=== PATIENT | female | born 1995 | race Caucasian/White ===

== ENCOUNTER 2021-12-08 13:57 | Day surgery (SDC) | payer OTHER ==
[~2021-12-08] VITALS: Ht 167.6 cm; Wt 102.3 kg
[2021-12-08 14:45] LABS: COLLECTION METHOD CLEAN CATCH
[2021-12-08 14:58] LABS: BASO % 0.2 % (0.0-2.0); EOS # 0.1 K/mm3 (0.0-0.7); EOS % 0.6 % (0.0-4.0); GRAN # 12.9 K/mm3 (1.4-6.5); GRAN % 80.6 % (42.2-75.2); HEMOGLOBIN 12.6 g/dl (12.5-16.0); LYMPH # 2.1 K/mm3 (1.2-3.4); MEAN CELL VOLUME 84 fl (80.0-100.0); MEAN CORPUSCULAR HEMOGLOBIN 29 pg (27-31); MEAN CORPUSCULAR HGB CONC 35 g/dl (33.0-37.0); MEAN PLATELET VOLUME 9.8 fl (7.4-10.4); MONO # 0.9 K/mm3 (0.1-0.6); MONO % 5.4 % (1.7-9.3); PLATELET COUNT 306 K/mm3 (130-400); RED BLOOD COUNT 4.34 M/mm3 (4.10-5.30); REDCELL DISTRIBUTION WIDTH-CV 12.2 % (11.5-14.5)
[2021-12-08 15:01] LABS: MUCOUS Present (NOT PRESENT); URINE BACTERIA None Seen /hpf (NONE SEEN); URINE RBC 0-2 /hpf (0-2); URINE WBC 0-2 /hpf (0-2)
[2021-12-08 15:02] LABS: PH 5.5 (5.0-8.5); URINE APPEARANCE Clear (CLEAR/HAZY); URINE COLOR Yellow (YELLOW); URINE GLUCOSE Negative (NEGATIVE); URINE KETONE Negative (NEGATIVE); URINE PROTEIN(semi-quant) Negative (NEGATIVE)
[2021-12-08 15:03] LABS: URINE BLOOD 1+ (NEGATIVE); URINE NITRATE Negative (NEGATIVE); URINE UROBILINOGEN 0.2 E.U/dL (0.2-1.0)
[2021-12-08 15:05] LABS: HEMATOCRIT 36.5 % (37.0-47.0)
[2021-12-08 15:13] LABS: ALBUMIN 3.7 gm/dL (3.5-5.0); BILIRUBIN,TOTAL 1.5 mg/dL (0.2-1.2); CALCIUM 9.4 mg/dL (8.4-10.2); CREATININE, serum 0.71 mg/dL (0.57-1.11); POTASSIUM 3.6 mmol/L (3.5-4.5); TOTAL PROTEIN 7.5 gm/dL (6.2-8.1)
[2021-12-08] MEDS ORDERED: MOTRIN 600600 MG/TAB PO (17:00)
[2021-12-08] MEDS ORDERED: NORCO 325 MG-51 TAB PO (17:01)
[2021-12-08 19:11] VITALS: BP 140/94; PULSE 77; TEMP 98
[2021-12-08 19:26] VITALS: BP 127/67; PULSE 89
[2021-12-08 19:37] VITALS: BP 127/76; PULSE 89; TEMP 98.7
[2021-12-08 19:41] VITALS: BP 129/78; PULSE 83; TEMP 98.6
[2021-12-08 19:56] VITALS: BP 134/80; PULSE 87
[2021-12-08 20:26] VITALS: BP 111/60; PULSE 88; TEMP 98
--- NOTE | 2021-12-08 22:46 | NUR ---
PATIENT IN BED AT SHIFT CHANGE. ALERT AND ORIENTED BUT DROWSY AND STATED SHE FELT DIZZY. POST OP VITALS STABLE. PATIENT TOLERATED PO FLUIDS, PROVIDED WITH SANDWICH BOX AND ICECREAM. PATIENT TOLERATED FOOD WITHOUT ISSUE. PATIENT STANDBY ASSIST TO BATHROOM AND VOIDED WITHOUT ISSUE. PROVIDED WITH PRN NORCO FOR OVERNIGHT PAIN CONTROL AND INSTRUCTED PATIENT TO USE MOTRIN IF NEEDED AND AVOIDED ADDITIONAL TYLENOL DOSES. DISCHARGE TEACHING AND PAPER WORK COMPLETED. IV TO R AC DISCONTINUED, CATHETER INTACT, BANDAID APPLIED. PATIENT DISCHARGED AT 2155 VIA WHEELCHAIR, TO HOME WITH SPOUSE.
== END 2021-12-08 21:55 | disposition home or self-care (01) ==
LOC: COL.ER 13:57 → SURG 16:59 → SDCO 16:59
PROVIDERS: Emergency Medicine
DX: K35.80 Unspecified acute appendicitis (principal)
CPT/HCPCS: OP; J0330; J1100; J1170; J1885; J2270; J2405; J2543; J2704; J3010; J7120; Q9967